=== PATIENT | male | born 1945 | race Caucasian/White ===

== ENCOUNTER 2019-02-24 00:43 | Outpatient (CLI) | payer MEDICARE ==
[~2019-02-24 00:43] MED LIST: ASPI-1009 PO; CHOL10002 PO; CLOP75TA9 PO; HYDR-3972 PO; LANTUS SQ; LISI-600 PO; METO25TA6 PO; NOVLG SQ; SIMV20TA5 PO; VERA120T2 PO
== END 2019-02-24 23:59 | disposition home or self-care (01) ==
LOC: DIABETIC 00:43
PROVIDERS: ATTEND Specialist
DX: E11.65 Type 2 diabetes mellitus with hyperglycemia (principal); I10 Essential (primary) hypertension; Z79.4 Long term (current) use of insulin; Z79.82 Long term (current) use of aspirin; Z79.899 Other long term (current) drug therapy; Z88.2 Allergy status to sulfonamides; Z95.0 Presence of cardiac pacemaker
CPT/HCPCS: G0108

== ENCOUNTER 2019-04-15 05:08 | Outpatient (CLI) | payer MEDICARE | END 2019-04-15 23:59 | disposition home or self-care (01) | LOC: DIABETIC 05:08 | PROVIDERS: ATTEND Specialist | DX: E11.69 Type 2 diabetes mellitus with other specified complication (principal) | CPT/HCPCS: G0108 ==

== ENCOUNTER 2019-07-17 01:14 | Outpatient (CLI) | payer MEDICARE ==
[~2019-07-17 01:14] MED LIST changes: +SIMV-42 PO; -SIMV20TA5 PO
== END 2019-07-17 23:59 | disposition home or self-care (01) ==
LOC: DIABETIC 01:14
PROVIDERS: ATTEND Specialist
DX: E11.65 Type 2 diabetes mellitus with hyperglycemia (principal)
CPT/HCPCS: G0108

== ENCOUNTER 2021-07-01 09:59 | Day surgery (SDC) | payer MEDICARE ==
[2021-06-27 15:47] LABS: BASOPHILS % (AUTO) 0.4 % (0-1); EOSINOPHILS # (AUTO) 0.4 X10'3 (0-0.9); EOSINOPHILS % (AUTO) 4.4 % (0-6); HEMATOCRIT 36.9 % (42.0-52.0); HEMOGLOBIN 12.4 g/dl (14.0-17.9); LYMPHOCYTES # (AUTO) 2.7 X10'3 (1.1-4.8); LYMPHOCYTES % (AUTO) 26.1 % (21-51); MEAN CORPUSCULAR HGB CONC 33.6 g/dL (33.0-36.5); MEAN PLATELET VOLUME 6.5 FL (7.4-10.4); MONOCYTES % (AUTO) 10.2 % (2-12); NEUTROPHILS % (AUTO) 58.9 % (42-75); PLATELET COUNT 260 X10'3 (140-440); RED BLOOD COUNT 4.01 X10'6 (4.70-6.10); RED CELL DISTRIBUTION WIDTH 13.2 % (11.5-14.5); WHITE BLOOD COUNT 10.3 X10'3 (4.5-11.0)
[2021-06-27 15:55] LABS: ALBUMIN 3.9 G/DL (3.4-5.0); ANION GAP 10 (8-16); BLOOD UREA NITROGEN 34 MG/DL (7-18); BUN/CREATININE RATIO 20.5 (5.4-32.0); CALCIUM 9.2 MG/DL (8.5-10.1); CHLORIDE 107 MMOL/L (99-107); CREATININE 1.66 MG/DL (0.60-1.10); GLUCOSE 70 MG/DL (70-104); POTASSIUM 4.3 MMOL/L (3.5-5.1); SODIUM 143 MMOL/L (135-145); TOTAL CARBON DIOXIDE 25.6 MMOL/L (24-32); eGFR 41 ML/MIN
[2021-06-27 15:58] LABS: APTT 24 SECONDS (22-32)
[~2021-07-01] VITALS: Ht 177.8 cm; Wt 97.9 kg
[~2021-07-01 09:59] MED LIST changes: -LISI-600 PO; +LISI20TA28 PO; +LOP25T PO; -METO25TA6 PO
[2021-07-01] MEDS ORDERED: LORazepam 0.5 MG tablet PO PRN (10:20)
[2021-07-01] MEDS ORDERED: diphenhydrAMINE 25mg capsule PO PRN (10:20)
[2021-07-01] MEDS ORDERED: normal saline 1,000 ML IV SCH (10:20)
[2021-07-01] MEDS ORDERED: LISI10TA27 PO (10:31)
[2021-07-01] MEDS ORDERED: fentaNYL/PF 50MCG/1 ML 2ML syringe ONE (12:36)
[2021-07-01] MEDS ORDERED: midazolam 1 mg/ML 2ml injection ONE ×2 (12:37→13:43)
[2021-07-01] MEDS ORDERED: LIDOcaine 1% (10mg/ml)w/preservative injection 20ml MDV ONE (12:37)
[2021-07-01] MEDS ORDERED: iohexol 350MG/ML 100ml bottle IV ONE ×2 (12:45→13:27)
[2021-07-01] MEDS ORDERED: heparin 1,000unit/ml 10ml vial 10 ML ONE (13:33)
[2021-07-01] MEDS ORDERED: iohexol 350 MG/ML 50ML vial IV ONE (13:58)
[2021-07-01] MEDS ORDERED: ticagrelor 90mg tablet ONE (14:13)
[2021-07-01] MEDS ORDERED: proCHLORperazine 10 MG/2 ml inj IV PRN (14:40)
[2021-07-01] MEDS ORDERED: OXAZEpam 15mg capsule PO PRN (14:40)
[2021-07-01] MEDS ORDERED: HYDROcodone/acetaminophen 5mg/325mg tablet PO PRN (14:40)
[2021-07-01] MEDS ORDERED: ondansetron/PF 4mg/2ml inj IV PRN (14:40)
[2021-07-01] MEDS ORDERED: HYDROcodone/acetaminophen 10/325mg tab PO PRN (14:40)
--- NOTE | 2021-07-01 14:41 | NUR ---
pt back in room, no distress, Right femoral dressing CDI
[2021-07-01 14:45] VITALS: BP 119/64
[2021-07-01 15:00] VITALS: BP 105/60
[2021-07-01 15:15] VITALS: BP 133/62
[2021-07-01 15:30] VITALS: BP 136/62
[2021-07-01 16:00] VITALS: BP 132/65
[2021-07-01 16:27] VITALS: BP 122/63
[2021-07-01] MEDS ORDERED: ticagrelor 90mg tablet PO SCH (20:00)
== END 2021-07-01 17:00 | disposition home or self-care (01) ==
LOC: SSTAY O 09:59
PROVIDERS: ATTEND Internal Medicine Interventional Cardiology
DX: R94.39 Abnormal result of other cardiovascular function study (principal); I25.10 Atherosclerotic heart disease of native coronary artery without angina pectoris; G47.33 Obstructive sleep apnea (adult) (pediatric); E11.22 Type 2 diabetes mellitus with diabetic chronic kidney disease; I12.9 Hypertensive chronic kidney disease with stage 1 through stage 4 chronic kidney disease, or unspecified chronic kidney disease; N18.9 Chronic kidney disease, unspecified; I47.1 Supraventricular tachycardia; E78.5 Hyperlipidemia, unspecified; Z95.0 Presence of cardiac pacemaker; Z87.891 Personal history of nicotine dependence; Z79.899 Other long term (current) drug therapy
CPT/HCPCS: 36415; 80048; 85025; 85610; 85730; 93005; 93459; 99152; 99153; C1725; C1751; C1760; C1769; C1874; C9600; J1644; J2250; J3010; J3490; J7030; Q0163; Q9967; A4620; A6258